=== PATIENT | female | born 1985 | race African-American/Black ===

== ENCOUNTER 2020-12-16 11:04 | Emergency (ER) | payer OTHER, SELFPAY ==
[2020-12-16 11:18] VITALS: BP 125/72; PULSE 110; RESP 18; TEMP 37.2; O2SAT 100
--- NOTE | 2020-12-16 11:35 | ED.URI ---
HPI - URI/Sore Throat General Chief Complaint: Upper Respiratory Infection Stated Complaint: Sore Throat, Ear Pain Time Seen by Provider: 12/16/20 11:35 Source: patient Mode of arrival: ambulatory Limitations: no limitations History of Present Illness HPI Narrative: Edith Hernandez is a 25 yo female who has not been vaccinated for Covid comes to the [facility] with bilateral ear pain and sore throat, difficulty swallowing. She states that just started yesterday and has gotten progressively worse Related Data Allergies Allergy/AdvReac Type Severity Reaction Status Date / Time Penicillins Allergy Mild Unknown Verified 12/16/20 11:41 Review of Systems Review of Systems: Narrative: CONSTITUTIONAL: Denies fever, chills, sweats. Fatigue EYES: Denies visual changes, redness, discharge. ENT: Denies rhinorrhea, has congestion, has sore throat, bilateral otalgia. CARDIOVASCULAR: Denies chest pain, palpitations, edema. RESPIRATORY: Denies dyspnea, wheezing, cough GASTROINTESTINAL: Denies abdominal pain, nausea, vomiting, diarrhea. GENITOURINARY: Denies dysuria, hematuria, abnormal discharge SKIN: Denies rash or itching. NEUROLOGIC: Denies numbness, or focal weakness. PSYCHIATRIC: Denies anxiety or depression. ON LICENSE OF [facility] Past Medical History Medical History No acute medical problems Family History Family History Other Hypertension Social History Social History (Updated 12/16/20 @ 11:44 by Tova Bowers CNP) Smoking status: Never smoker Alcohol intake: never Comments At time of signature, I agree with nursing past medical, surgical, social and family history. There is no relevant family history pertinent to the presenting complaint. Exam Narrative: Exam Narrative: GENERAL: This is a well-nourished, well-developed patient, in moderate distress. HEAD: normocephalic, atraumatic. EYES: Sclera clear/white. Vision is grossly intact. EARS: External ears erythematous, auditory canals clear and without drainage, TMs bulging without perforation. Hearing grossly intact. NOSE: External nose normal without nasal discharge, nares without redness, mild rhinorrhea. THROAT: Mucous membranes moist, posterior pharynx erythema NECK: Neck supple, tender submandibular lymph nodes CARDIOVASCULAR: Tachycardic rate and rhythm without murmurs, gallops, or rubs. RESPIRATORY: Clear to auscultation. Breath sounds equal bilaterally. No wheezes, rales, or rhonchi. GASTROINTESTINAL: Abdomen soft, SKIN: warm, intact with no suspicious lesions or rash, good texture and turgor. NEURO: awake, alert, and oriented to person, place and time. There were no obvious focal neurologic abnormalities. Steady gait EXTREMITIES: Normal range of motion. BACK: Nontender without deformity Course Course Emergency Course: Patient comes to [facility] with complaints of worsening sore throat since yesterday has difficulty swallowing states her ears hurt and her jaw hurts Strep test done- negative result Started on amoxicillin 875 along with prednisone x5 days, viscous lidocaine Vital Signs Vital signs: Vital Signs Temperature 98.9 F 12/16/20 11:18 Pulse Rate 110 H 12/16/20 11:18 Respiratory Rate 18 12/16/20 11:18 Blood Pressure 125/72 12/16/20 11:18 Pulse Oximetry 100 12/16/20 11:18 Temperature 98.9 F 12/16/20 11:18 Pulse Rate 110 H 12/16/20 11:18 Respiratory Rate 18 12/16/20 11:18 Blood Pressure 125/72 12/16/20 11:18 Pulse Oximetry 100 12/16/20 11:18 MDM - URI/Sore Throat Differential Diagnosis Differential diagnosis: Likely sinusitis, bronchitis, influenza, pharyngitis and other Lab Data Labs: Strep Screen Presumptive Negative *(Reference Range: Negative)* Critical Care Time Critical Care Time Critical Care Time: No Discharge Plan Disc
== END 2020-12-16 11:54 | disposition home or self-care (01) ==
PROVIDERS: Emergency Provider Nurse Practitioner
DX: L04.9 Acute lymphadenitis, unspecified (principal); J02.9 Acute pharyngitis, unspecified
CPT/HCPCS: 87081; 87880; 99213; G0463